=== PATIENT | female | born 1955 | race Caucasian/White ===

== ENCOUNTER 2017-04-06 12:42 | Emergency (ER) | payer BC ==
[2017-04-06 12:59] VITALS: BP 130/63
--- NOTE | 2017-04-06 13:20 | UC ---
Skin Complaint HPI - HPI Summary HPI Summary: Pt presents with itchy and painful rash to lower back. She tells me that last night she itched her lower back and noticed there was a raised red area that was painful to touch. She thinks maybe an insect bit her as she hikes and is outdoors a lot. She denies fever, chills, SOB, chest pain, headache, abdominal pain, N/V/D/C, or drainage from the site. - History of Current Complaint Chief Complaint: UCSkin Time Seen by Provider: 04/06/17 13:19 Stated Complaint: TICK BITE ?: No Onset/Duration: Sudden Onset Skin Exposure Onset/Duration: Days Ago Timing: Constant Onset Severity: Moderate Current Severity: Moderate Pain Intensity: 3 Pain Scale Used: 0-10 Numeric - Allergy/Home Medications Allergies/Adverse Reactions: Allergies Allergy/AdvReac Type Severity Reaction Status Date / Time Bee Venom Allergy Swelling Verified 04/06/17 13:00 Home Medications: Home Medications Calcitriol (Topical) [Vectical] 1 dose TOPICAL DAILY 04/06/17 [History Confirmed 04/06/17] Calcium Carbonate-Vitamin D [Calcium 600+D 600-200 mg-Unit] 3 tab PO DAILY 04/06 [History Confirmed 04/06/17] Cholecalciferol [Vitamin D] 1 tab PO DAILY 04/06/17 [History Confirmed 04/06/17] [id number]-[id number] Cho [Glucosamine Chondroitin & [id number] mg] 1 tab PO DAILY 04/06/17 [History Confirmed 04/06/17] Omeprazole CAP* [Prilosec CAP* 20 MG] 1 tab PO DAILY 04/06/17 [History Confirmed 04/06/17] Vitamin B Complex TAB* [Complex B-100*] 1 tab PO DAILY 04/06/17 [History Confirmed 04/06/17] Review of Systems Constitutional: Negative Skin: Rash - Lower back Eyes: Negative ENT: Negative Respiratory: Negative Cardiovascular: Negative Gastrointestinal: Negative Genitourinary: Negative Musculoskeletal: Negative Neurological: Negative Psychological: Negative All Other Systems Reviewed And Are Negative: Yes PMH/Surg Hx/FS Hx/Imm Hx Previously Healthy: Yes GI/ History: Gastroesophageal Reflux - Surgical History Surgical History: Yes Surgery Procedure, Year, and Place: Breast. Ovaries - Social History Occupation: Employed Full-time Lives: With Family Alcohol Use: Occasionally Substance Use Type: None Smoking Status (MU): Former Smoker Physical Exam Triage Information Reviewed: Yes Appearance: Well-Appearing, Well-Nourished Vital Signs: Initial Vital Signs Temp 96.6 F 04/06/17 12:56 Pulse 67 04/06/17 12:56 Resp 18 04/06/17 12:56 BP 130/63 04/06/17 12:56 Pulse Ox 99 04/06/17 12:56 Vital Signs Reviewed: Yes Neck: Positive: Supple, Nontender, No Lymphadenopathy Respiratory: Positive: Chest non-tender, Lungs clear, Normal breath sounds, No respiratory distress, No accessory muscle use Cardiovascular: Positive: RRR, No Murmur, Pulses Normal Neurological: Positive: Alert Psychological: Positive: Age Appropriate Behavior Skin: Positive: rashes - There is a cluster of five <0.5mm urticarial grouped papules, one with a small vesicle approx along the left L3 dermatome. The papules do not cross the midline. TTP. No discharge, ulceration, or bleeding. Course/Dx - Course Course Of Treatment: Herpes Zoster lower back - appears to be early on in the dz process. Rx for valacyclovir for treatment and gabapentin for pain - Differential Diagnoses - Skin Complaint Differential Diagnoses: Allergic Reaction, Cellulitis, Drug Rash, Eczema, Urticaria, Varicella Zoster - Diagnoses Provider Diagnoses: Herpes Zoster lower back Discharge - Discharge Plan Condition: Stable Disposition: HOME Prescriptions: Gabapentin CAP(*) [Neurontin 100 mg CAP(*)] 100 mg PO TID PRN #30 cap PRN Reason: Pain Valacyclovir HCl 1,000 mg PO TID #21 tab Patient Education Materials: Shingles (ED), Shingles Vaccine (ED) Referrals: Jose Elias Negrete MD [Primary Care Provider] - Additional Instructions: 1) May take gabapentin one capsule three times a day as needed for pain 2) Keep the area covered and avoid contact with immunocompromised patients or children. If you develop a fever, SOB, chest pain, new or worsening symptoms - please call your PCP or go to the ED.
== END 2017-04-06 13:40 | disposition home or self-care (01) ==
LOC: UCEAST 12:42
DX: B02.9 Zoster without complications (principal); Z72.89 Other problems related to lifestyle; Z87.891 Personal history of nicotine dependence
CPT/HCPCS: 99202; G0463